=== PATIENT | male | born 1985 | race American Indian/Alaskan Native ===

== ENCOUNTER 2017-03-12 00:29 | Emergency (ER) | payer SELFPAY ==
--- NOTE | 2017-03-12 00:55 | ED PDOC ---
Arrival/HPI - General Time Seen by Provider: 03/12/17 00:41 Historian: Patient - History of Present Illness Narrative History of Present Illness (Text): 03/12/17 00:49 Erich Gordon is a 32 year old male, whose past medical history includes DVT, PE , GERD, H. pylori, herniated disc, and hernia repair, who presents to the Emergency department complaining hematuria and urinary frequency tonight. Patient states he had been on Eliquis in the past.Curently not on any anticoagulant RX. Patient denies any fever, chills, chest pain, shortness of breath, nausea, vomiting, diarrhea, abdominal pain, back pain, neck pain, headache, dizziness, or any other complaints. Time/Duration: Other (today) Symptom Onset: Gradual Symptom Course: Unchanged Activities at Onset: Rest, Light Past Medical History - Provider Review Nursing Documentation Reviewed: Yes Family/Social History - Physician Review Nursing Documentation Reviewed: Yes Family/Social History: Unknown Family HX Allergies/Home Meds Allergies/Adverse Reactions: Allergies ibuprofen Allergy (Intermediate, Verified 03/12/17 00:48) NAUSEA stomach problem Home Medications: Home Meds Medication Instructions Recorded Confirmed Home Med [Home Med] 1 tab PO DAILY 03/12/17 03/12/17 No Known Home Med 03/12/17 03/12/17 Review of Systems - Physician Review All systems were reviewed & negative as marked: Yes - Review of Systems Constitutional: Normal. absent: Fevers Eyes: Normal ENT: Normal Respiratory: Normal. absent: SOB, Cough Cardiovascular: Normal. absent: Chest Pain Gastrointestinal: Normal. absent: Abdominal Pain, Diarrhea, Nausea, Vomiting Genitourinary Male: Frequency, Hematuria. absent: Dysuria Musculoskeletal: Normal. absent: Back Pain, Neck Pain Skin: Normal. absent: Rash Neurological: Normal. absent: Headache, Dizziness Endocrine: Normal Hemo/Lymphatic: Normal Psychiatric: Normal Physical Exam Vital Signs Reviewed: Yes Temperature: Afebrile Blood Pressure: Normal Pulse: Regular Respiratory Rate: Normal Appearance: Positive for: Well-Appearing, Non-Toxic, Comfortable Pain Distress: None Mental Status: Positive for: Alert and Oriented X 3 - Systems Exam Head: Present: Atraumatic, Normocephalic Pupils: Present: PERRL Extroacular Muscles: Present: EOMI Conjunctiva: Present: Normal Mouth: Present: Moist Mucous Membranes Neck: Present: Normal Range of Motion Respiratory/Chest: Present: Clear to Auscultation, Good Air Exchange. No: Respiratory Distress, Accessory Muscle Use Cardiovascular: Present: Regular Rate and Rhythm, Normal S1, S2. No: Murmurs Abdomen: Present: Normal Bowel Sounds. No: Tenderness, Distention, Peritoneal Signs Back: Present: Normal Inspection Upper Extremity: Present: Normal Inspection. No: Cyanosis, Edema Lower Extremity: Present: Normal Inspection. No: Edema Neurological: Present: GCS=15, CN II-XII Intact, Speech Normal Skin: Present: Warm, Dry, Normal Color. No: Rashes Psychiatric: Present: Alert, Oriented x 3, Normal Insight, Normal Concentration Medical Decision Making ED Course and Treatment: 03/12/17 00:49 Impression: 32 year old male complaining of hematuria and urinary frequency. Plan: -- Labs -- UA -- Reassess and disposition Progress Notes: 03/12/17 06:00 Please refer to downtime documentation. - Lab Interpretations Lab Results: 03/12/17 02:10 03/12/17 02:10 Lab Results 03/12/17 02:10: WBC 6.2, RBC 3.97, Hgb 13.4 L, Hct 39.2 L, MCV 98.7, MCH 33.8, MCHC 34.2, RDW 12.7, Plt Count 161, MPV 9.7 03/12/17 02:10: Sodium 142, Potassium 3.8, Chloride 104, Carbon Dioxide 26, Anion Gap 16, BUN 16, Creatinine 0.7, Est GFR ( Amer) > 60, Est GFR (Non- Af Amer) > 60, Random Glucose 78, Calcium 8.9, Total Bilirubin 0.7, AST 45, ALT 34, Alkaline Phosphatase 53, Total Protein 7.5, Albumin 4.3, Globulin 3.3, Albumin/Globulin Ratio 1.3 03/12/17 02:10: Urine Color Light red, Urine Appearance Clear, Urine pH 6.0, Ur Specific [place] <= 1.005, Urine Protein Negative, Urine Glucose (UA) Negative, Urine Ketones Negative, Urine Blood Large H, Urine Nitrate Negative, Urine Bilirubin Negative, Urine Urobilinogen 0.2, Ur Leukocyte Esterase Trace H, Urine RBC 1 - 3, Urine WBC 0 - 2, Ur Epithelial Cells 1 - 3, Urine Bacteria Rare - Medication Orders Current Medication Orders: Discontinued Medications Cephalexin Monohydrate (Keflex) Confirm Administered Dose 500 mg .ROUTE .STK- MED ONE Stop: 03/12/17 04:17 Sodium Chloride (Sodium Chloride 0.9%) 1,000 mls @ 999 mls/hr IV .[id number] STA Stop: 03/12/17 01:56 - Scribe Statement The provider has reviewed the documentation as recorded by the Tom Melgar Provider Scribe Attestation: All medical record entries made by the Farhanaibe were at my direction and personally dictated by me. I have reviewed the chart and agree that the record accurately reflects my personal performance of the history, physical exam, medical decision making, and the department course for this patient. I have also personally directed, reviewed, and agree with the discharge instructions and disposition. Disposition/Present on Arrival - Present on Arrival Any Indicators Present on Arrival: No - Disposition Have Diagnosis and Disposition been Completed?: Yes Diagnosis: Hematuria Disposition: HOME/ ROUTINE Disposition Time: 03:55 Patient Plan: Discharge Condition: GOOD
[2017-03-12] MEDS ORDERED: Sodium Chloride 0.9% 1,000 ML IV STA (00:56)
[2017-03-12 06:22] LABS: URINE BILIRUBIN NEGATIVE (NEGATIVE); URINE BLOOD LARGE (NEGATIVE); URINE GLUCOSE (UA) NEGATIVE (NEGATIVE); URINE LEUKOCYTE ESTERASE TRACE Leu/uL (NEGATIVE); URINE NITRATE NEGATIVE (NEGATIVE); URINE PROTEIN NEGATIVE mg/dL (<30 mg/dL); URINE UROBILINOGEN 0.2 E.U./dL (<1 E.U./dL)
[2017-03-12 06:23] LABS: URINE APPEARANCE CLEAR (CLEAR); URINE COLOR LIGHT RED (YELLOW)
[2017-03-12 06:24] LABS: URINE BACTERIA RARE (NEG); URINE WBC 0 - 2 /hpf (0-6)
[2017-03-12 06:25] LABS: HEMOGLOBIN 13.4 gm/dL (14.0-18.0); MEAN CELL VOLUME 98.7 fL (80.0-105.0); MEAN CORPUSCULAR HEMOGLOBIN 33.8 pg (25.0-35.0); MEAN CORPUSCULAR HGB CONC 34.2 g/dl (31.0-37.0); MEAN PLATELET VOLUME 9.7 fl (7.0-11.0); RBC 3.97 10^6/uL (3.5-6.1); RED CELL DISTRIBUTION WIDTH 12.7 % (11.5-14.5); WHITE BLOOD COUNT 6.2 10^3/ul (4.5-11.0)
[2017-03-12 06:57] LABS: ALB/GLOB RATIO 1.3 (1.1-1.8); ALBUMIN 4.3 g/dL (3.0-4.8); ALT/SGPT 34 U/L (7-56); AST/SGOT 45 U/L (15-59); BLOOD UREA NITROGEN 16 mg/dL (7-21); CALCIUM 8.9 mg/dL (8.4-10.5); GFR AFRICAN-AMERICAN > 60; GFR NON-AFRICAN AMERICAN > 60
== END 2017-03-12 04:22 | disposition home or self-care (01) ==
LOC: ED 00:29
DX: R31.9 Hematuria, unspecified (principal)